=== PATIENT | female | born 1950 | race Two or more races ===

== ENCOUNTER → 2021-01-13 | Emergency (ER) | payer OTHER ==
[~2021-01-13] VITALS: Ht 157.5 cm; Wt 66.2 kg
[~2021-01-13] MED LIST: LEVOTHYROXINE75 MCG PO
== END | disposition home or self-care (01) ==
LOC: ER 07:02
DX: R60.0 Localized edema (principal); M79.605 Pain in left leg

== ENCOUNTER 2021-01-16 08:31 | Outpatient (CLI) | payer OTHER | END 2021-01-16 15:36 | disposition home or self-care (01) | LOC: SONOGRAMA 08:31 → MAMO-SONO 08:45 → SONOGRAMA 15:36 | PROVIDERS: ATTEND General Practice | DX: S39.82XA Other specified injuries of lower back, initial encounter (principal) ==